=== PATIENT | male | born 1975 | race Two or more races ===

== ENCOUNTER 2025-01-25 12:21 | Emergency (ER) | payer OTHER ==
[~2025-01-25] VITALS: Ht 190.5 cm; Wt 90.7 kg
== END 2025-01-25 14:50 | disposition home or self-care (01) ==
LOC: ER 12:21
DX: S92.811A Other fracture of right foot, initial encounter for closed fracture (principal); X83.8XXA Intentional self-harm by other specified means, initial encounter; Y93.89 Activity, other specified; Y92.89 Other specified places as the place of occurrence of the external cause; Y99.8 Other external cause status; M79.673 Pain in unspecified foot